=== PATIENT | female | born 1960 | race Two or more races ===

== ENCOUNTER 2019-07-30 19:00 | Emergency (ER) | payer OTHER ==
[2019-07-30 19:07] VITALS: BP 103/76; PULSE 77; TEMP 98.1; BMI 24.3
--- NOTE | 2019-07-30 19:53 | PDOC ---
History of Present Illness - General Chief Complaint: Chest Pain Stated Complaint: CHEST PAIN & RT SIDE PAIN History Source: Patient, Family - History of Present Illness Initial Comments: 07/30/19 19:47 59 yo F no significant PMH presents to ED with sudden onset L sided chest and shoulder pain. Pt states that the pain began around 1 pm and is a very sharp pain. on onset of symptoms became very dizzy. She states the pain is intermittent, but everytime she has the pain it feels stronger. she states it feels like stabbing. at the moment she describes it as a 7/10. she states that it hurts more when she presses on it but the pain is not affected by position or breathing. she states that the muscles on her chest feel very tense. she never had a similar pain in the past. Past History - Travel Traveled outside of the country in the last 30 days: No - Past Medical History Allergies/Adverse Reactions: Allergies Allergy/AdvReac Type Severity Reaction Status Date / Time avocado [Avocado] Allergy Vomiting Verified 07/30/19 19:03 Home Medications: Ambulatory Orders NK [No Known Home Medication] 07/30/19 COPD: No - Surgical History Cholecystectomy: Yes - Psycho Social/Smoking Cessation Hx Smoking History: Never smoked Have you smoked in the past 12 months: No Hx Alcohol Use: No Drug/Substance Use Hx: No Substance Use Type: None Review of Systems - Review of Systems Is the patient limited Icelandic proficient: Yes Constitutional: No: Chills, Fever Respiratory: No: Shortness of Breath Cardiac (ROS): Yes: Chest Pain, Lightheadedness ABD/GI: No: Nausea, Vomiting, Abdominal cramping Integumentary: No: Sweating Neurological: Yes: Dizziness. No: Headache *Physical Exam - Vital Signs Last Vital Signs Temp Pulse Resp BP Pulse Ox 98.1 F 77 18 103/76 96 07/30/19 19:03 07/30/19 19:03 07/30/19 19:03 07/30/19 19:03 07/30/19 19:03 - Physical Exam General Appearance: Yes: Nourished, Appropriately Dressed Neck: negative: Lymphadenopathy (R), Lymphadenopathy (L) Respiratory/Chest: positive: Chest Tender (L chest), Lungs Clear, Normal Breath Sounds. negative: Respiratory Distress, Accessory Muscle Use, Crackles, Wheezing Cardiovascular: positive: Regular Rhythm, Regular Rate, S1, S2. negative: JVD Gastrointestinal/Abdominal: positive: Normal Bowel Sounds, Soft. negative: Tender, Distended, Hepatomegaly Musculoskeletal: negative: CVA Tenderness Extremity: positive: Normal Capillary Refill, Normal Inspection Integumentary: positive: Normal Color, Dry, Warm Neurologic: positive: Fully Oriented Heart Score/ECG Review - History History: Slightly suspicious - Electrocardiogram EKG: Normal - Age Age: 45-65 - Risk Factors Based on the list above the patient has:: No risk factors known - Troponin Troponin: </= normal limit - Score Heart Score - Total: 1 ED Treatment Course - LABORATORY CBC & Chemistry Diagram: 07/30/19 20:10 07/30/19 20:10 Medical Decision Making - Medical Decision Making 07/30/19 20:11 59 yo F presenting with chest and shoulder pain -EKG reviewed, NSR, no sig ST changes -cardiac profile -cbc, cmp 07/30/19 23:02 -2nd trop negative. rpt EKG reviewed, no ST changes. -DC with instructions to f/u w/ PMD Discharge - Discharge Information Problems reviewed: Yes Clinical Impression/Diagnosis: Musculoskeletal chest pain Condition: Good Disposition: HOME - Admission No - Follow up/Referral - Patient Discharge Instructions Patient Printed Discharge Instructions: DI for Atypical Chest Pain Additional Instructions: You came into the hospital with chest pain. We did an EKG and checked your blood , making it unlikely that your heart is causing the pain. It is likely that your chest pain is from your chest muscles. Please take 1 baby aspirin (81 mg ) every morning. Please follow up with your primary care physician regarding your symptoms. If you have any new, concerning, or worsening symptoms please return to the ED. - Post Discharge Activity
[2019-07-30 20:28] LABS: BASO % 0.6 % (0-2.0); EOS % 2.5 % (0-4.5); HEMATOCRIT 38.8 % (32.4-45.2); HEMOGLOBIN 13.2 GM/dL (10.7-15.3); LYMPH % 53.7 % (8-40); MCH 31.3 pg (25.7-33.7); MCHC 34.1 g/dl (32.0-36.0); MEAN CELL VOLUME 91.7 fl (80-96); MEAN PLT VOLUME 7.4 fl (7.5-11.1); MONO % 5.1 % (3.8-10.2); NEUT % 38.1 % (42.8-82.8); PLATELET COUNT 248 K/MM3 (134-434); RBC 4.23 M/mm3 (3.60-5.2); RDW 12.3 % (11.6-15.6); WHITE BLOOD COUNT 6.5 K/mm3 (4.0-10.0)
[2019-07-30 20:53] LABS: ALBUMIN 3.9 g/dl (3.4-5.0); BILIRUBIN,TOTAL 0.2 mg/dL (0.2-1); BLOOD UREA NITROGEN 19.8 mg/dL (7-18); CREATININE 0.8 mg/dL (0.55-1.3); MAGNESIUM 2.2 mg/dL (1.8-2.4); PHOSPHOROUS 3.4 mg/dL (2.5-4.9); POTASSIUM 4.1 mmol/L (3.5-5.1); TOT PROT 7.2 g/dl (6.4-8.2)
[2019-07-30] MEDS ORDERED: KETOROLAC TROMETHAMINE 30 MG/1 ML VIAL IM ONE (21:02)
[2019-07-30] MEDS ORDERED: KETOROLAC TROMETHAMINE 30 MG/1 ML VIAL IVPUSH ONE (21:06)
[2019-07-30] MEDS ORDERED: KETOROLAC TROMETHAMINE 30 MG/1 ML VIAL ONE (21:08)
--- NOTE | 2019-07-30 23:00 | PDOC ---
Documentation entered by Earline Ferrera SCRIBE, acting as scribe for Bi Pardo MD. Bi Pardo MD: This documentation has been prepared by the andreweIban Lincy, SCRIBE, under my direction and personally reviewed by me in its entirety. I confirm that the documentation accurately reflects all work, treatment, procedures, and medical decision making performed by me. Attending Attestation - Resident Resident Name: Denice Velasco - ED Attending Attestation I have performed the following: I have examined & evaluated the patient, The case was reviewed & discussed with the resident, I agree w/resident's findings & plan, Exceptions are as noted - HPI HPI: 07/30/19 20:02 The patient is a 59-year-old female with no significant past medical history who presents to the emergency department with left-sided chest and shoulder pain since 1:00 pm today. The patient describes the pain as sharp, stabbing in quality, that presents intermittently with severity worsening during each episode. Denies fever, chills, nausea, or vomiting. PCP: @ [facility]. - Physicial Exam PE: 07/30/19 22:59 Patient is awake and alert, well-nourished, and in no distress Normocephalic and atraumatic PERRLA, EOMI No JVD CTA RRR + Left anterior chest wall tenderness reproducible to palpation No lower extremity edema Abdomen soft, nontender, nondistended - Medical Decision Making 07/30/19 23:09 59-year-old female with no significant past medical history presents with atypical left-sided chest discomfort, sharp, intermittent, lasting seconds, worsened by movement at the shoulder joint that started shortly prior to arrival. Serial EKGs revealed no evidence of acute ischemia, questionable Q waves noted in 3 and aVF without evidence of dynamic change. Serial cardiac enzymes within normal limit. Chest x-ray reveals no evidence of infiltrate/ effusion or cardiomegaly. Patient's heart score is noted to be 1. Given the atypical presentation of the symptoms, lack of significant coronary artery disease risk factors, patient is safe for outpatient discharge with follow-up. Plan of care has been discussed with the patient and her family. They have expressed understanding. Advised him to continue with daily aspirin until advised to stop by the PMD. They have expressed understanding as well. Will discharge.
--- NOTE | 2019-07-31 10:50 | EKG ---
Test Reason : Blood Pressure : / mmHG Vent. Rate : 068 BPM Atrial Rate : 068 BPM P-R Int : 156 ms QRS Dur : 088 ms QT Int : 408 ms P-R-T Axes : 056 008 045 degrees QTc Int : 433 ms SINUS RHYTHM WITH OCCASIONAL PREMATURE VENTRICULAR COMPLEXES OTHERWISE NORMAL ECG WHEN COMPARED WITH ECG OF 30-JUL-2019 19:02, PREMATURE VENTRICULAR COMPLEXES ARE NOW PRESENT Confirmed by MARIO ALBERTO SIERRA, BROOKS ([id number]) on 07/31/2019 10:50:11 AM Referred By: Confirmed By:BROOKS LLANES MD
--- NOTE | 2019-07-31 10:51 | EKG ---
Test Reason : Blood Pressure : / mmHG Vent. Rate : 072 BPM Atrial Rate : 072 BPM P-R Int : 148 ms QRS Dur : 092 ms QT Int : 380 ms P-R-T Axes : 067 030 062 degrees QTc Int : 416 ms NORMAL SINUS RHYTHM CANNOT RULE OUT ANTERIOR INFARCT , AGE UNDETERMINED ABNORMAL ECG NO PREVIOUS ECGS AVAILABLE Confirmed by BROOKS LLANES MD ([id number]) on 07/31/2019 10:50:55 AM Referred By: Confirmed By:BROOKS LLANES MD
== END 2019-07-30 23:12 | disposition home or self-care (01) ==
LOC: JER 19:00
PROC: 3E0333Z Introduction of Anti-inflammatory into Peripheral Vein, Percutaneous Approach (ICD-10-PCS; principal; 2019-07-30)
DX: R07.89 Other chest pain (principal); Z91.018 Allergy to other foods
CPT/HCPCS: 36415; 71045-TC-FY; 80053; 82550; 83735; 84100; 84484; 85025; 93005; 93010; 99285-25

== ENCOUNTER 2022-05-04 17:57 | Emergency (ER) | payer OTHER ==
[2022-05-04 18:05] VITALS: BP 112/64; PULSE 73; RESP 18; TEMP 98.4; BMI 26.6
[2022-05-04] MEDS ORDERED: IBUPROFEN 600 MG TABLET (FP) PO ONE (19:55)
== END 2022-05-04 21:22 | disposition home or self-care (01) ==
LOC: JERFT 17:57
PROC: 2W3TX1Z Immobilization of Left Foot using Splint (ICD-10-PCS; principal; 2022-05-04)
DX: S92.902A Unspecified fracture of left foot, initial encounter for closed fracture (principal); W01.0XXA Fall on same level from slipping, tripping and stumbling without subsequent striking against object, initial encounter
CPT/HCPCS: 73610-TC-LT-FY; 73630-TC-LT; 99283-25